=== PATIENT | female | born 1930 | race Asian ===

== ENCOUNTER 2019-02-19 15:10 | Observation (INO) | payer MEDICARE, OTHER ==
[~2019-02-19] VITALS: Ht 157.5 cm; Wt 57.4 kg
[~2019-02-19 15:10] MED LIST: AMLO5TAB4 PO; ASC500 PO; LOSA50TA14 PO; MECL25TA2 PO; METO-319 PO; OMEP40CA6 PO
[2019-02-19] MEDS ORDERED: SOD CHLORIDE 0.9% 1,000 ML IV STA (15:24)
[2019-02-19] MEDS ORDERED: LABETALOL HCL 20MG INJ IV ONE (15:30)
[2019-02-19] MEDS ORDERED: ATOR10TA65 PO (16:19)
[2019-02-19] MEDS ORDERED: ISOS10TA2 PO (16:19)
[2019-02-19] MEDS ORDERED: OMEP20CA16 PO (16:20)
[2019-02-19] MEDS ORDERED: METO-335 PO (16:21)
[2019-02-19] MEDS ORDERED: LOSA100T15 PO (16:21)
[2019-02-19] MEDS ORDERED: ASPI81TA50 PO (16:22)
[2019-02-19] MEDS ORDERED: MULT-542 PO (16:23)
[2019-02-19] MEDS ORDERED: OMEG1CAP2 PO (16:23)
[2019-02-19] MEDS ORDERED: MECL-77 PO (16:24)
[2019-02-19] MEDS ORDERED: ACETAMINOPHEN 325 MG TAB PO PRN (17:30)
[2019-02-19] MEDS ORDERED: ONDANSETRON 4 MG INJ IV PRN (17:30)
--- NOTE | 2019-02-19 17:45 | ERD ---
ER Documentation Chief Complaint Chief Complaint Dizziness with near syncope X 1 hr ago while walking to bed. no fall. HPI Patient is an 88-year-old female with hypertension who presents with dizziness. The patient was brought in by ambulance. She said that she was not feeling well and felt dizzy at 2 PM. Her blood pressure was elevated. She laid down and then passed out or almost passed out. She denies pain. Upon review of old medical records this is the patient's first visit to the emergency department. She does not remember the name of her primary doctor. ROS All systems reviewed and are negative except as per history of present illness. Medications Home Meds Reported Medications Meclizine Hcl* (Meclizine Hcl*) 25 Mg Tablet, 25 MG PO Q8H PRN for DIZZINESS, T AB 02/19/19 [place]-3 Acid Ethyl Esters (Lovaza) 1 Gm Capsule, 1 GM PO BID, CAP 02/19/19 Multivitamin* (Daily Value*) 1 Each Tablet, 1 TAB PO DAILY, TAB 02/19/19 Aspirin (Aspir-Low) 81 Mg Tablet.dr, 81 MG PO DAILY 02/19/19 Metoprolol Succinate* (Toprol XL*) 25 Mg Tab.sr.24h, 25 MG PO DAILY, #30 TAB 02/19/19 Losartan Potassium* (Losartan Potassium*) 100 Mg Tablet, 100 MG PO DAILY, TAB 02/19/19 Omeprazole* (Omeprazole*) 20 Mg Capsule.dr, 20 MG PO DAILY, #30 CAP 02/19/19 Atorvastatin Calcium (Atorvastatin Calcium) 10 Mg Tablet, 10 MG PO QHS, #30 TAB 02/19/19 Isosorbide Dinitrate* (Isordil*) 10 Mg Tablet, 10 MG PO BID, TAB 02/19/19 Discontinued Reported Medications Meclizine Hcl* (Antivert*) 25 Mg Tablet, 25 MG PO Q8H for DIZZINESS, TAB 06/01/14 Metoprolol Succinate* (Toprol XL*) 50 Mg Tab.er.24h, 50 MG PO DAILY, TAB 06/01/14 Ascorbic Acid (Vitamin C) 500 Mg Tab, 500 MG PO DAILY, TAB 06/01/14 Amlodipine Besylate* (Norvasc*) 5 Mg Tablet, 5 MG PO DAILY, TAB 06/01/14 Losartan Potassium* (Losartan Potassium*) 50 Mg Tablet, 50 MG PO BID, TAB 06/01/14 Omeprazole* (Omeprazole*) 40 Mg Capsule.dr, 40 MG PO DAILY, CAP 06/01/14 Allergies Allergies: Uncoded Allergies: POLLEN (Allergy, Unknown, 06/01/14) PMhx/Soc History of Surgery: Yes (RIGHT EYE SX,NASAL SX,HEMORRHOID SX) Anesthesia Reaction: No Hx Neurological Disorder: No Hx Respiratory Disorders: No Hx Cardiac Disorders: Yes (HTN) Hx Psychiatric Problems: No Hx Miscellaneous Medical Probl: Yes (HIGH CHOLESTEROL) Hx Alcohol Use: Yes Hx Substance Use: No Hx Tobacco Use: No Smoking Status: Never smoker FmHx Family History: No diabetes Physical Exam Vitals Vital Signs Date Temp Pulse Resp B/P (MAP) Pulse Ox O2 O2 Flow FiO2 Time Delivery Rate 02/19/19 97.6 60 18 212/104 100 15:24 (140) Physical Exam Const: Mild distress Head: Atraumatic Eyes: Normal Conjunctiva ENT: Normal External Ears, Nose and Mouth. Neck: Full range of motion. No meningismus. Resp: Clear to auscultation bilaterally Cardio: Regular rate and rhythm, no murmurs Abd: Soft, non tender, non distended. Normal bowel sounds Skin: No petechiae or rashes Back: No midline or flank tenderness Ext: No cyanosis, or edema Neur: Awake and alert, cranial nerves II through XII are intact, strength is 5 out of 5 in all 4 extremities, no slurred speech Psych: Normal Mood and Affect Result Diagram: 02/19/19 1534 02/19/19 1534 Results 24 hrs Laboratory Tests Test 02/19/19 15:34 White Blood Count 4.3 10^3/ul Red Blood Count 3.94 10^6/ul Hemoglobin 11.8 g/dl Hematocrit 35.1 % Mean Corpuscular Volume 89.1 fl Mean Corpuscular Hemoglobin 29.9 pg Mean Corpuscular Hemoglobin Concent 33.6 g/dl Red Cell Distribution Width 14.0 % Platelet Count 146 10^3/UL Mean Platelet Volume 10.5 fl Immature Granulocytes % 0.200 % Neutrophils % 37.7 % Lymphocytes % 52.2 % Monocytes % 7.8 % Eosinophils % 1.6 % Basophils % 0.5 % Nucleated Red Blood Cells % 0.0 /100WBC Immature Granulocytes # 0.010 10^3/ul Neutrophils # 1.6 10^3/ul Lymphocytes # 2.2 10^3/ul Monocytes # 0.3 10^3/ul Eosinophils # 0.1 10^3/ul Basophils # 0.0 10^3/ul Nucleated Red Blood Cells # 0.0 10^3/ul Sodium Level 138 mmol/L Potassium Level 3.9 mmol/L Chloride Level 104 mmol/L Carbon Dioxide Level 24 mmol/L Anion Gap 10 Blood Urea Nitrogen 20 mg/dl Creatinine 0.87 mg/dl Est Glomerular Filtrat Rate mL/min mL/min Glucose Level 105 mg/dl Calcium Level 8.9 mg/dl Troponin I < 0.012 ng/ml Current Medications Medications Dose Sig/Amaya Start Time Status Last (Trade) Ordered Route PRN Stop Time Admin Dose Reason Admin Sodium 1,000 ml @ Q1H STAT 02/19/19 DC 02/19/19 Chloride 1,000 mls/hr IV 15:24 15:59 02/19/19 16:23 Labetalol 20 mg ONCE ONCE 02/19/19 DC 02/19/19 HCl IV 15:30 16:00 (Labetalol) 02/19/19 15:31 Ondansetron 4 mg ER BRIDGE 02/19/19 HCl (Zofran PRN IV 17:30 Inj) NAUSEA/VOMITI 02/20/19 17:29 NG 650 mg ER BRIDGE 02/19/19 Acetaminophen PRN PO 17:30 (Tylenol .MILD PAIN 02/20/19 17:29 Tab) 1-3 OR TEMP Procedures/MDM EKG read by me: Rate/Rhythm: Regular rate and rhythm at a rate of 62 Intervals: Normal Impression: No evidence of ischemia or arrhythmia CT brain pending at this time. Patient is a 88-year-old female with hypertension who presents for dizziness and near syncope. Her blood pressure was elevated with a systolic blood pressure of over 200. She was given labetalol IV. EKG shows no signs of ischemia. Laboratory studies are relatively normal. CT scan is pending but I doubt stroke at this time. The patient will be admitted to the care of Dr. Villa to a telemetry observation bed. Critical Care: Time: 35 minutes excluding all billable procedures. Treatments/Evaluations: Close monitoring and treatment of unstable vital signs, cardiorespiratory, and neurologic status, while maintaining tight balance of fluid, respiratory, and cardiac interventions. Departure Diagnosis: Primary Impression: Dizzy Additional Impression: Syncope Syncope type: unspecified Qualified Codes: R55 - Syncope and collapse Condition: TAVON Howard MD Feb 19, 2019 17:45
[2019-02-19 20:00] VITALS: BP 189/94; PULSE 73; RESP 18; Ht 157.5 cm; Wt 57.4 kg
[2019-02-19] MEDS ORDERED: NACL 0.9% 3 ML SYG IV SCH (20:00)
[2019-02-19] MEDS: METOPROLOL (XL) 25 MG TAB PO SCH ×2 (20:43→20:53)
[2019-02-19] MEDS: ATORVASTATIN 10 MG TAB PO SCH (20:44)
[2019-02-19 21:00] VITALS: BP 189/94; PULSE 73; RESP 18
[2019-02-19] MEDS ORDERED: ISOSORBIDE DINITRATE 10 MG TAB PO SCH (21:00)
--- NOTE | 2019-02-19 21:08 | HP ---
Date/Time of Note Date/Time of Note DATE: 02/19/19 TIME: 21:08 Assessment/Plan VTE Prophylaxis SCD applied (from Nsg): Yes Pharmacological prophylaxis: NA/contraindicated Pharm contraindication: low risk/ambulating Lines/Catheters IV Catheter Type (from Nrsg): Saline Lock Assessment/Plan Hospital Course This is a 88-year-old female being admitted to the telemetry floor for: #1 near syncope: Orthostatic versus uncontrolled HTN versus other. Patient did present with blood pressures in the 200s systolic. She was given labetalol in the emergency department with good response. She denied a sensation of object spinning around her. She does not check her blood pressure at home I am incl ined to think that there is a possibility that her blood pressures are not well controlled at home but is causing her symptoms. Will monitor her blood pressure closely continue patient's home medications. We will check an echocardiogram and carotid ultrasound. We will do a PT evaluation. Monitor on telemetry. Consider cardiology if indicated #2 uncontrolled hypertension: She did present with blood pressures in the 200 systolic. She was given labetalol with good response. Will continue Toprol, losartan, Isordil. Will monitor patient's blood pressure closely PRN hydralazine as indicated. Titrate home meds as indicated. #3 hyperlipidemia: Continue statin, Lovaza #4 DVT GI prophylaxis: SCDs, home PPI Further treatment strategy will be implemented as per the clinical course. Result Diagram: 02/19/19 1534 02/19/19 1534 Results 24hrs Laboratory Tests Test 02/19/19 15:34 02/19/19 20:13 White Blood Count 4.3 L Red Blood Count 3.94 L Hemoglobin 11.8 L Hematocrit 35.1 L Mean Corpuscular Volume 89.1 Mean Corpuscular Hemoglobin 29.9 Mean Corpuscular Hemoglobin Concent 33.6 Red Cell Distribution Width 14.0 Platelet Count 146 Mean Platelet Volume 10.5 H Immature Granulocytes % 0.200 Neutrophils % 37.7 L Lymphocytes % 52.2 H Monocytes % 7.8 Eosinophils % 1.6 Basophils % 0.5 Nucleated Red Blood Cells % 0.0 Immature Granulocytes # 0.010 Neutrophils # 1.6 Lymphocytes # 2.2 Monocytes # 0.3 Eosinophils # 0.1 Basophils # 0.0 Nucleated Red Blood Cells # 0.0 Sodium Level 138 Potassium Level 3.9 Chloride Level 104 Carbon Dioxide Level 24 Anion Gap 10 Blood Urea Nitrogen 20 Creatinine 0.87 Est Glomerular Filtrat Rate mL/min Glucose Level 105 Calcium Level 8.9 Troponin I < 0.012 < 0.012 HPI/ROS Admit Date/Time Admit Date/Time Feb 19, 2019 at 17:08 Hx of Present Illness Chief complaint: Dizziness This is a very pleasant 88-year-old female with a past medical history of hypertension, hyperlipidemia, hearing loss who presented to the emergency department complaining of dizziness. Patient states that she was at her senior housing where when she was walking she felt dizzy at approximately around 2 PM. She denies any loss of consciousness she denies passing out or falling. She states that she has been having some dizziness over the last couple of days and that she was prescribed meclizine for this. She does not check her blood pressure as she does not have a blood pressure monitor. She reports that she is compliant with her medications. She denies the sensation of object spinning a round her. Allergies: Pollen extracts Medications: Meclizine 25 mg every 8 as needed Multivitamin Lovaza 1 g capsule ED Omeprazole 20 mg p.o. capsule daily Aspirin 81 mg p.o. daily Atorvastatin 10 mg p.o. daily Isordil 30 mg p.o. twice daily Losartan 100 mg p.o. daily Metoprolol XL 25 mg p.o. daily ROS Const: As per HPI Eyes : No pain discharge or redness or change in visual acuity ENT: No pain, sore throat, congestion, congestion, dysphagia or discharge Respiratory: No shortness of breath, cough, sputum, wheezing, or pleuritic pain Cardiovascular: No chest pain, palpitation, PND, or edema GI : no change in appetite, abdominal pain, nausea, vomiting, diarrhea, constipation, or change in the color his stool Genitourinary: No dysuria, hematuria, flank pain , discharge or CVA tenderness Musculoskeletal: No joint pain, back pain, neck pain, restricted range of motion in neck or joints Skin: No rash, bruising or hives Neuro: As per HPI Endocrine: No polyuria, polydipsia, temperature intolerance Psych: No hallucination, depression, anxiety or suicidal ideation PMH/Family/Social Past Medical History Hypertension, hyperlipidemia, hearing loss Medications Current Medications Ondansetron HCl (Zofran Inj) 4 mg ER BRIDGE PRN IV NAUSEA/VOMITING; Start 01/25 03/13 at 17:30; Stop 02/20/19 at 17:29 Acetaminophen (Tylenol Tab) 650 mg ER BRIDGE PRN PO .MILD PAIN 1-3 OR TEMP; Start 02/19/19 at 17:30; Stop 02/20/19 at 17:29 IV Flush (NS 3 ml) 3 ml PER PROTOCOL IV ; Start 02/19/19 at 20:00 Enoxaparin Sodium (Lovenox) 30 mg DAILY SC ; Start 02/20/19 at 09:00 Aspirin (Halfprin) 81 mg DAILY PO ; Start 02/20/19 at 09:00 Atorvastatin Calcium (Lipitor) 10 mg QHS PO Last administered on 02/19/19at 20:44; Admin Dose 10 MG; Start 02/19/19 at 21:00 Isosorbide Dinitrate (Isordil) 10 mg BID PO Last administered on 02/19/19at 20:44; Admin Dose 10 MG; Start 02/19/19 at 21:00 Losartan Potassium (Cozaar) 100 mg DAILY PO ; Start 02/20/19 at 09:00 Metoprolol Succinate (Toprol Xl) 25 mg QHS PO Last administered on 02/19/19at 20:43; Admin Dose 25 MG; Start 02/19/19 at 20:30 Hydralazine HCl (Apresoline) 10 mg Q6 PRN PO ELEVATED BLOOD PRESSURE; Start 02/19/19 at 20:30 Coded Allergies: pollen extracts (Verified Allergy, Unknown, 02/19/19) Past Surgical History Hemorrhoidectomy, bilateral cataract surgery Family History Significant Family History: no pertinent family hx Social History Alcohol Use: none Smoking Status: Never smoker Drug Use: none Exam/Review of Systems Vital Signs Vitals Vital Signs Date Temp Pulse Resp B/P (MAP) Pulse Ox O2 O2 Flow FiO2 Time Delivery Rate 02/19/19 81 16 98/71 (80) 99 Room Air 20:13 02/19/19 97.9 18:40 Exam Exam General: This is a very pleasant female currently lying in bed in no acute distress, currently reports that her dizziness has resolved HEENT: Atraumatic, normocephalic. The pupils are equal, round and reactive. Extraocular motor are intact, hearing aid Neck: Supple with full range of motion. No rigidity or meningismus Chest: Nontender Lungs: Clear to auscultation bilaterally no crackles rales or wheezing Heart: Normal S1-S2, Regular rhythm and rate. No murmur, S3, or S4 Abdomen: Soft , nontender, nondistended , bowel sounds are present. No guarding no rebound tenderness , No masses or organomegaly. No costovertebral temporal angle mass Extremities: Normal to inspection, no edema no cyanosis Neurologic: Normal mental status, speech normal, cranial nerves II through XII are intact, motor and sensory are intact, no focal weakness Additional Comments EKG: Normal sinus rhythm at approximately 62 bpm, no ST or T wave abnormalities concerning for acute ischemia PROCEDURE: CT BRAIN WITHOUT CONTRAST CLINICAL INDICATION: Syncope and headache. TECHNIQUE: Transaxial CT examination of the head was performed without intravenous administration of contrast on a [employer] helical CT scanner. In addition to the brain and bone windows of transaxial images, multiple sagittal and coronal reformatted images were generated for the interpretation. DICOM images are available. Radiation dose: CTDIvol = 39 mGy; total DLP = 699 mGy-cm. One or more of the following dose reduction techniques were used: - Automated exposure control. - Adjustment of the mA and/or kV according to patient size. - Use of iterative reconstruction technique. COMPARISON: None. FINDINGS: Evaluation of the supratentorial compartment demonstrates no cerebral infarction, hemorrhage, mass effect, midline shift, or abnormal extra-axial fluid collection. Moderate enlargement of the ventricles and cortical sulci in a pattern of atrophy is normal for the age. Mild periventricular and subcortical white matter hypoattenuation density is present which is most likely due to age related microvascular change. Evaluation of the posterior fossa reveals no infarction, hemorrhage, or mass ef fect. Mild to moderate atrophic change is compatible with the age of patient. The cerebellar tonsils are in normal position relative to the foramen magnum. The skull is intact without abnormal bone density or destructive lesion. Bilateral mastoid air cells and the visualized paranasal sinuses are normally aerated. IMPRESSION: 1. No cerebral infarction, hemorrhage, or hydrocephalus. 2. Mild age related microvascular change. RPTAT: EE Mitchel Kaleigh, Physician Date Time Electronically viewed and signed by Mitchel Farris, Physician on 02/19/2019 18:04 PH/ CC: TAVON HOFFMAN MD [id number] BENNIE RODRIGUEZ Feb 19, 2019 21:08
[2019-02-20] VITALS (10 sets, daily range): BP systolic 139–189; BP diastolic 65–90; PULSE 54–69; RESP 16–18
[2019-02-20] MEDS: FISH OIL 1,000 MG CAP PO SCH ×2 (08:19→20:47)
[2019-02-20] MEDS: ASPIRIN (EC) 81 MG TAB PO SCH (08:19)
[2019-02-20] MEDS: MULTIVITAMINS THERAPEUTIC TAB PO SCH (08:19)
[2019-02-20] MEDS: LOSARTAN 50 MG TAB PO SCH (08:19)
[2019-02-20] MEDS: ENOXAPARIN 30 MG/0.3 ML SYG SC SCH (08:30)
[2019-02-20] MEDS ORDERED: ISOSORBIDE DINITRATE 10 MG TAB PO SCH (09:00)
[2019-02-20] MEDS ORDERED: METOPROLOL (XL) 25 MG TAB PO SCH (09:00)
[2019-02-20] MEDS: PANTOPRAZOLE (EC) 40 MG TAB PO SCH (09:14)
--- NOTE | 2019-02-20 13:39 | RADRPT ---
Echocardiogram Report Patient Name: Wilmar SOTOent ID: [id number] : 9 (88y 6m)Study Date: 02/20/2019 7:06:54 AM Gender: FAccession #: [id number] Tech: Veronica Galeana [facility] Location: [id number] Ref.Physician: FRANCK SANCHES Height(Cm): BSA: Weight(Kg): Quality: AdequateOrder Physician: FRANCK SANCHES Account #: Procedures: Echocardiographic Report: Transthoracic echocardiogram with complete 2D, M-Mode, and doppler examination. Indications: Syncope. Measurements: 2D/M Mode Doppler Measurement Value Normal Range Measurement Value Normal Range LVIDd 2D 3.7 [ 3.8 - 5.2 ] cm AV Peak Van 1.5 [ 100.0 - 170.0 ] cm/sec LVIDs 2D 2.4 [ 2.2 - 3.5 ] cm AV Peak PG 10.0 [ 2.0 - 9.0 ] mmHg LVPWd 2D 1.1 [ 0.6 - 0.9 ] cm AI Peak PG 71.0 mmHg IVSd 2D 1.1 [ 0.6 - 0.9 ] cm AI Peak Van 4.2 cm/sec AoR Diam 2D 3.2 [ 2.3 - 3.1 ] cm AI PHT 768.0 msec EDV 2D 58.1 [ 46.0 - 106.0 ] ml LVOT Peak Van 0.9 [ 70.0 - 110.0 ] cm/sec ESV 2D 20.4 [ 14.0 - 42.0 ] ml LVOT Peak PG 3.0 [ 2.0 - 6.0 ] mmHg EF 2D 64.9 [ 54.0 - 74.0 ] percent MV E Peak Van 0.5 [ 60.0 - 130.0 ] cm/sec LA Dimen 2D 3.7 [ 2.7 - 3.8 ] cm MV A Peak Van 1.2 [ 100.0 - 120.0 ] cm/sec MV E/A 0.4 [ 0.8 - 1.5 ] ratio MV Decel Time 384 [ 104 - 258 ] msec Lat E` Van 0.1 [ 10.0 - 15.0 ] cm/sec Lateral E/E` 10.0 [ 1.0 - 2.0 ] ratio MV E/A 0.4 [ 0.8 - 1.5 ] ratio TR Peak Van 2.6 [ 100.0 - 280.0 ] cm/sec TR Peak PG 27.0 mmHg RVSP 30.0 [ 10.0 - 36.0 ] mmHg RA Pressure 3.0 mmHg Findings: Left Ventricle: Normal left ventricular systolic function. Normal left ventricular cavity size. Mild concentric left ventricular hypertrophy. Ejection fraction is visually estimated at 65 %. Tissue Doppler/Mitral Doppler indices are consistent with impaired relaxation (Stage I diastolic dysfunction). Right Ventricle: Normal right ventricular size. Normal right ventricular systolic function. Left Atrium: The left atrium is normal in size. Right Atrium: The right atrium is normal in size. Mitral Valve: Normal appearance of the mitral valve. Mild mitral annular calcification. Mild to moderate mitral valve regurgitation. Aortic Valve: No hemodynamically significant aortic stenosis by doppler. Aortic cusps appear mildly calcified. Mild to moderate aortic valve regurgitation. Tricuspid Valve: Normal appearance of the tricuspid valve. The estimated Peak RVSP is 30 mmHg. There is mild tricuspid regurgitation. Pulmonic Valve: Pulmonic valve not well visualized. Pericardium: Normal pericardium with no significant pericardial effusion. Aorta: Normal aortic root. IVC: Normal size and normal respiratory collapse consistent with normal right atrial pressure. Conclusions: Normal left ventricular systolic function. Normal left ventricular cavity size. Mild concentric left ventricular hypertrophy. Ejection fraction is visually estimated at 65 %. Tissue Doppler/Mitral Doppler indices are consistent with impaired relaxation (Stage I diastolic dysfunction). Normal right ventricular size. Normal right ventricular systolic function. The left atrium is normal in size. The right atrium is normal in size. Mild to moderate mitral valve regurgitation. No hemodynamically significant aortic stenosis by doppler. Mild to moderate aortic valve regurgitation. The estimated Peak RVSP is 30 mmHg. There is mild tricuspid regurgitation. Normal pericardium with no significant pericardial effusion. Electronically Signed By: Sander Ling 2019-02-20 13:38:48 PDT
--- NOTE | 2019-02-20 15:43 | PN ---
Date/Time of Note Date/Time of Note DATE: 02/20/19 TIME: 15:35 Assessment/Plan VTE Prophylaxis Risk score (from Ns)>0 risk: 3 SCD applied (from Ns): Yes Pharmacological prophylaxis: NA/contraindicated Pharm contraindication: low risk/ambulating Lines/Catheters IV C[facility] (from [facility] Saline Lock Assessment/Plan Assessment/Plan This is a 88-year-old female being admitted to the telemetry floor for: #near syncope: #Hypertension - Patient very hypertensive on admission, still slightly elevated even after restarting meds - No significant drop in blood pressure with standing; as expected while on metoprolol. - Will slowly titrate up isordil. A calcium channel concetta may be a better choice in the long run for BP control - Carotid duplex normal. # hyperlipidemia: Continue statin, Lovaza # DVT GI prophylaxis: SCDs, home PPI Dispo: 24 hours monitoring on telemetry. Likely discharge tomorrow. Result Diagram: 02/20/1914 02/20/19513 Subjective 24 Hr Interval Summary Free Text/Dictation No acute overnight events. Patient ambulated with physical therapy today. Mild dizziness with exertion, but no significant orthostatic hypotension. No events on telemetry. Exam/Review of Systems Exam Vitals Vital Signs Date Temp Pulse Resp B/P (MAP) Pulse Ox O2 O2 Flow FiO2 Time Delivery Rate 02/20/19 98.0 58 16 173/85 97 15:26 (114) 02/19/19 Room Air 20:13 Intake and Output 02/19/19 02/19/19 02/20/19 1515:00 23:00 07:00 IntakeIntake Total 1000 ml BalanceBalance 1000 ml Exam General: This is a very pleasant female currently lying in bed in no acute distress, currently reports that her dizziness has resolved HEENT: Atraumatic, normocephalic. The pupils are equal, round and reactive. Extraocular motor are intact, hearing aid Neck: Supple with full range of motion. No rigidity or meningismus Chest: Nontender Lungs: Clear to auscultation bilaterally no crackles rales or wheezing Heart: Normal S1-S2, Regular rhythm and rate. No murmur, S3, or S4 Abdomen: Soft , nontender, nondistended , bowel sounds are present. No guarding no rebound tenderness , No masses or organomegaly. No costovertebral temporal angle mass Extremities: Normal to inspection, no edema no cyanosis Results Results 24hrs Laboratory Tests Test 02/19/19 20:13 02/20/19 05:14 Troponin I < 0.012 < 0.012 White Blood Count 3.8 L Red Blood Count 3.77 L Hemoglobin 11.3 L Hematocrit 32.7 L Mean Corpuscular Volume 86.7 Mean Corpuscular Hemoglobin 30.0 Mean Corpuscular Hemoglobin Concent 34.6 Red Cell Distribution Width 14.0 Platelet Count 148 Mean Platelet Volume 10.0 Immature Granulocytes % 0.300 Neutrophils % 46.8 Lymphocytes % 41.9 Monocytes % 8.9 Eosinophils % 1.6 Basophils % 0.5 Nucleated Red Blood Cells % 0.0 Immature Granulocytes # 0.010 Neutrophils # 1.8 Lymphocytes # 1.6 Monocytes # 0.3 Eosinophils # 0.1 Basophils # 0.0 Nucleated Red Blood Cells # 0.0 Sodium Level 139 Potassium Level 3.5 Chloride Level 105 Carbon Dioxide Level 24 Anion Gap 10 Blood Urea Nitrogen 17 Creatinine 0.76 Est Glomerular Filtrat Rate mL/min Glucose Level 99 Hemoglobin A1c 5.3 Calcium Level 8.9 Magnesium Level 1.9 Total Bilirubin 0.7 Direct Bilirubin 0.00 Indirect Bilirubin 0.7 Aspartate Amino Transf (AST/SGOT) 29 Alanine Aminotransferase (ALT/SGPT) 23 Alkaline Phosphatase 45 Creatine Kinase 80 Creatine Kinase Index 0.9 Creatinine Kinase MB (Mass) 0.69 Total Protein 7.0 Albumin 3.9 Globulin 3.10 Albumin/Globulin Ratio 1.25 Thyroid Stimulating Hormone (TSH) 6.300 H Medications Medication Current Medications Ondansetron HCl (Zofran Inj) 4 mg ER BRIDGE PRN IV NAUSEA/VOMITING; Start 02/19/19 at 17:30; Stop 02/20/19 at 17:29 Acetaminophen (Tylenol Tab) 650 mg ER BRIDGE PRN PO .MILD PAIN 1-3 OR TEMP; Start 02/19/19 at 17:30; Stop 02/20/19 at 17:29 IV Flush (NS 3 ml) 3 ml PER PROTOCOL IV ; Start 02/19/19 at 20:00 Enoxaparin Sodium (Lovenox) 30 mg DAILY SC Last administered on 02/20/19at 08:30; Admin Dose 30 MG; Start 02/20/19 at 09:00 Aspirin (Halfprin) 81 mg DAILY PO Last administered on 02/20/19 08:19; Admin Dose 81 MG; Start 02/20/19 at 09:00 Atorvastatin Calcium (Lipitor) 10 mg QHS PO Last administered on 02/19/19 20:44; Admin Dose 10 MG; Start 02/19/19 at 21:00 Losartan Potassium (Cozaar) 100 mg DAILY PO Last administered on 02/20/19 08:19; Admin Dose 100 MG; Start 02/20/19 at 09:00 Metoprolol Succinate (Toprol Xl) 25 mg QHS PO Last administered on 02/19/19 20:43; Admin Dose 25 MG; Start 02/19/19 at 20:30 Hydralazine HCl (Apresoline) 10 mg Q6 PRN PO ELEVATED BLOOD PRESSURE; Start at 20:30 Isosorbide Dinitrate (Isordil) 30 mg BID PO Last administered on 02/20/19 08:19; Admin Dose 30 MG; Start 02/20/19 at 09:00 Multivitamins Therapeutic (Theragran) 1 tab DAILY PO Last administered on 02/20/19 08:19; Admin Dose 1 TAB; Start 02/20/19 at 09:00 Fish Oil (Fish Oil) 1,000 mg BID PO Last administered on 02/20/19 08:19; Admin Dose 1,000 MG; Start 02/20/19 at 09:00 Pantoprazole (Protonix Tab) 40 mg DAILY@06 PO Last administered on 02/20/19 09:14; Admin Dose 40 MG; Start 02/20/19 at 09:00 RAS BERNAL MD Feb 20, 2019 15:43
[2019-02-20] MEDS: AMLODIPINE 5 MG TAB PO SCH (18:36)
[2019-02-20] MEDS: METOPROLOL (XL) 25 MG TAB PO SCH (20:48)
[2019-02-20] MEDS: ATORVASTATIN 10 MG TAB PO SCH (20:48)
[2019-02-20] MEDS: ISOSORBIDE DINITRATE 20 MG TAB PO SCH (20:48)
[2019-02-21 03:59] VITALS: BP 147/76; PULSE 58; RESP 16
[2019-02-21] MEDS: PANTOPRAZOLE (EC) 40 MG TAB PO SCH (06:00)
[2019-02-21 07:34] VITALS: BP_SYST 18; BP_SYST 185; BP_DIAS 88; PULSE 59
[2019-02-21] MEDS: LOSARTAN 50 MG TAB PO SCH (08:21)
[2019-02-21] MEDS: AMLODIPINE 5 MG TAB PO SCH (08:21)
[2019-02-21] MEDS: ASPIRIN (EC) 81 MG TAB PO SCH (08:21)
[2019-02-21] MEDS: MULTIVITAMINS THERAPEUTIC TAB PO SCH (08:21)
[2019-02-21] MEDS: FISH OIL 1,000 MG CAP PO SCH (08:21)
[2019-02-21] MEDS: ISOSORBIDE DINITRATE 20 MG TAB PO SCH (08:22)
[2019-02-21] MEDS: ENOXAPARIN 30 MG/0.3 ML SYG SC SCH (08:51)
[2019-02-21] MEDS ORDERED: CLON0.2T12 PO (11:02)
[2019-02-21] MEDS ORDERED: ISOS20TA19 PO (11:02)
[2019-02-21] MEDS ORDERED: AMLO-145 PO (11:02)
--- NOTE | 2019-02-21 11:03 | PDOCDIS ---
Discharge Instructions CONDITION [id number] Patient Condition: [id number] Good HOME CARE INSTRUCTIONS: [id number] Diet Instructions: [id number] FOLLOW UP/APPOINTMENTS Follow-up Plan pcp 1 week ACACIA HERNANDEZ MD Feb 21, 2019 11:03
[2019-02-21] MEDS ORDERED: HYDR25TA6 PO (11:05)
[2019-02-21 11:26] VITALS: BP_SYST 135; BP_SYST 16; BP_DIAS 84; PULSE 75; RESP 18
[2019-02-21] MEDS ORDERED: FUROSEMIDE 20 MG INJ IV ONE (11:30)
--- NOTE | 2019-02-21 11:31 | DS ---
DATE OF ADMISSION: 02/19/2019 DATE OF DISCHARGE: DISCHARGE DIAGNOSES: 1. An 88-year-old female with uncontrolled hypertension. 2. Dizziness secondary to above. 3. Hyperlipidemia. HOSPITAL COURSE: An 88-year-old very pleasant female who presented to emergency room with near synco pe and dizziness. She was found to have uncontrolled hypertension. Systolic blood pressure was in t he 200s Her Is[place]il was increased. A 2D echocardiogram was performed. This showed normal left vent ricular cavity size and mild concentric left ventricular hypertrophy. Ejection fraction was estimate d at 65%. I have added Norvasc and clonidine. The patient is no longer dizzy. She denied any chest pain or shortness of breath. Her exam was unremarkable. She is in stable condition for discharge i f her systolic blood pressure improves. This was discussed with her nurse. MEDICATIONS ON DISCHARGE: Include: 1. Norvasc 5 mg daily. 2. Clonidine 0.2 mg t.i.d. 3. Hydrochlorothiazide 25 mg daily. 4. Isosorbide 40 mg b.i.d. 5. Aspirin 81 mg daily. 6. Lipitor 10 mg at bedtime. 7. Losartan 100 mg daily. 8. Meclizine 25 mg every 8 hours as needed. 9. Toprol-XL 25 mg at bedtime. 10. Multivitamin 1 daily. 11. [place] 3 one tablet b.i.d. 12. Omeprazole 20 mg daily. FOLLOW UP: With PCP in 1 week. Dictated By: ACACIA COWART/HUGO Conf#: [id number] DID#: [id number]
[2019-02-21 11:50] VITALS: BP 161/85
== END 2019-02-21 17:50 | disposition home health service (06) ==
LOC: E/R 15:10 → TEL 17:08 → SUATTDRO 17:14
PROVIDERS: ADMIT Internal Medicine; ATTEND Internal Medicine
DX: I10 Essential (primary) hypertension (principal); R42 Dizziness and giddiness; R55 Syncope and collapse; E78.5 Hyperlipidemia, unspecified; E78.00 Pure hypercholesterolemia, unspecified; Z79.82 Long term (current) use of aspirin
CPT/HCPCS: 36415; 70450; 80048; 80053; 82306; 82550; 82553; 83036; 83735; 84439; 84443; 84484; 85025; 93005; 93306; 93880; 96361; 96374; 97161; 99285; G0378; J1650; J1940; J7030